=== PATIENT | female | born 1975 | race Caucasian/White ===

== ENCOUNTER 2016-12-17 08:02 | Day surgery (SDC) | payer OTHER ==
[~2016-12-17] VITALS: Ht 162.6 cm; Wt 69.0 kg
[2016-12-17] VITALS (8 sets, daily range): BP systolic 98–107; BP diastolic 46–65; PULSE 63–75; RESP 12–20; O2SAT 92–100
[~2016-12-17 08:02] MED LIST: BUPR200T PO; CeFAZolin Inj 2 GM in IV Premix 1 EACH IV ONE; GABA-502 PO; GABA600T2 PO; HYDR-3797 PO; HYDR15CR38 TP; IBUP200C PO; MELO-259 PO; OXCA300T5 PO; ZLP5T PO; ZOV800 PO
[2016-12-17] MEDS ORDERED: Dexamethasone 4 mg/mL Inj ONE (08:03)
[2016-12-17] MEDS ORDERED: Ondansetron 2 mg/mL 2 mL Inj ONE (08:03)
[2016-12-17] MEDS ORDERED: Propofol 10,000 mCg/mL 20 mL Inj ONE (08:03)
[2016-12-17] MEDS ORDERED: fentaNYL-PF 50 mCg/mL 2 mL Inj ONE (08:03)
[2016-12-17] MEDS ORDERED: Succinylcholine Chloride 20 mg/mL 5 mL Inj ONE (08:03)
[2016-12-17] MEDS: Lactated Ringer's 1,000 ML IV SCH ×3 (08:07→12:05)
[2016-12-17] MEDS ORDERED: Lactated Ringer's 500 ML IV PRN (09:38)
[2016-12-17] MEDS ORDERED: Lactated Ringer's 1,000 ML IV SCH (09:38)
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
[2016-12-17] MEDS ORDERED: Dexamethasone 4 mg/mL Inj IVPUSH PRN (09:40)
[2016-12-17] MEDS ORDERED: MetoCLOpramide 5 mg/mL 2 mL Inj IVPUSH PRN (09:40)
[2016-12-17] MEDS ORDERED: Phenylephrine 10,000 mCg/mL Inj IVPUSH PRN (09:40)
[2016-12-17] MEDS ORDERED: Ondansetron 2 mg/mL 2 mL Inj IVPUSH PRN (09:40)
[2016-12-17] MEDS ORDERED: EPHEDrine Sulfate 50 mg/mL Inj IVPUSH PRN (09:40)
[2016-12-17] MEDS ORDERED: Bupivacaine-MPF 0.5% W/EPI 30 mL Inj INFILTRATE ONE (10:04)
--- NOTE | 2016-12-17 10:58 | PCM.ANEP1 ---
Post Anesthesia Phase 1 PACU Phase 1 Assessment Date of Service: Dec 17, 2016 (0937) Vital Signs 36.5, 80, 20, 100%, 107/54 Vital Signs Date Time Temp Pulse Resp B/P Pulse Ox O2 Delivery O2 Flow Rate FiO2 12/17/16 08:27 36.4 70 18 99/55 97 Room Air Anesthetic Administered: GA Level of Alertness: Sleepy, easy to arouse HERNANDEZ's with Equal Strength: Yes Pain: No Nausea or Vomiting: No Oxygen Delivery: Simple Mask Lungs: Clear to Auscultation Dermatome Level: Full Sensation Summary UNEVENTFUL Bruce Patrick MD Dec 17, 2016 10:58
--- NOTE | 2016-12-17 10:59 | PCM.ANEP2 ---
Post Anesthesia Evaluation ASA/CMS Post Anesthesia VS in Patient's Normal Range?: Yes Resp Stable; Airway Patent?: Yes CV Function & Hydration Stable: Yes Mental Status Recovered?: Yes Pain control Satisfactory?: Yes N/V Control Satisfactory?: Yes Bruce Cramer MD Dec 17, 2016 10:59
[2016-12-17] MEDS ORDERED: HYDROcodone-APAP 5-325 mg Tablet PO PRN (11:00)
--- NOTE | 2016-12-17 11:05 | PCM.PODPO ---
Podiatry Operative Report Date of Service: Dec 17, 2016 (0937) Date of Service Dec 17, 2016 Pre Operative Diagnosis Gastrocnemius equinus left lower extremity Post Operative Diagnosis Same as preoperative diagnoses Procedure Gastrocnemius recession left lower extremity Surgeon Surgeon: Vincent Viveros DPM Assistants: None Indication for Procedure Painful equinus contracture left ankle Findings Healthy intact gastrocnemius aponeuroses Details of Procedure Patient was identified in the preoperative surgical area and all preoperative comorbidities and allergies were identified and thoroughly discussed. The patient was transported into the operating room and placed on the operating room table in the prone position position. The patient was then prepped and draped in the normal aseptic technique. A preoperative block consisting of a one-to-one mixture of half percent Marcaine with epinephrine and 2% lidocaine with epinephrine was given to the posterior mid leg. A linear incision approximately 3 cm in length was made over the posterior medial mid calf directly overlying the area of the mid section of the gastrocnemius aponeuroses. Blunt dissection was carried down with the Metzenbaum scissor to identify deep fascia. The posterior neurovascular structures were identified and retracted out of the surgical field with a metatarsal retractor. Deep fascia was incised with a #15 blade exposing the gastrocnemius aponeuroses. Blunt dissection was performed manually to expose the medial and lateral border of the gastrocnemius aponeuroses. A #15 blade was used to incise through and through the gastrocnemius aponeuroses while dorsiflexion pressure was applied to the foot at the ankle. Approximately 2-2-1/2 cm of gapping of the gastroc aponeurosis was noted. This wound was then copiously flushed large amounts of normal saline. Deep fascia was closed utilizing number 3. 0 Vicryl superficial closure was performed utilizing number 3. 0 Vicryl and skin closure was performed utilizing number 3. 0 Prolene. No complications occurred during this procedure. The patient was given an additional 10 mL half percent Marcaine with epinephrine postoperatively. This wound was then dressed with Adaptic sterile 4 x 4 gauze Kerlix and a mildly compressive Pham compression dressing with the ankle in slight dorsiflexion. The patient was awoken by anesthesia transferred back to the supine position and transported out of the operating room. Grafts, Implants: None Complications There were no periprocedural complications identified. Condition Stable Anesthetic Administered: GA Catheters: None Output, Estimated Blood Loss: 10 Blood Admin during surgery: No Surgical Cast or Splint: Well-padded Short Leg Splint Surgical Specimen Removed: No Specimen sent to Pathology: No Post Operative Plan Ice and elevate left lower extremity Nonweightbearing left lower extremity Keep dressing clean dry and intact left lower extremity Discharge to home when stable Advance diet as tolerated Pain medication as needed for severe pain only Contact office with any questions or concerns regarding care Vincent Viveros DPM Dec 17, 2016 11:05
[2016-12-17] MEDS: fentaNYL-PF 50 mCg/mL 2 mL Inj IVPUSH PRN ×2 (11:08→11:14)
== END 2016-12-17 23:59 | disposition home or self-care (01) ==
LOC: SAS 08:02
PROVIDERS: ATTEND Podiatrist Foot & Ankle Surgery
DX: M21.6X2 Other acquired deformities of left foot (principal); M79.662 Pain in left lower leg; F41.9 Anxiety disorder, unspecified; F31.9 Bipolar disorder, unspecified; M79.7 Fibromyalgia; J30.9 Allergic rhinitis, unspecified; Z87.891 Personal history of nicotine dependence; V49.9XXS Car occupant (driver) (passenger) injured in unspecified traffic accident, sequela; Y92.9 Unspecified place or not applicable
CPT/HCPCS: 27687; J0330; J0690; J1100; J2250; J2405; J2765; J3010; J7120

== ENCOUNTER 2016-12-20 07:18 | Emergency (ER) | payer OTHER ==
[~2016-12-20] VITALS: Ht 165.1 cm; Wt 65.9 kg
[~2016-12-20 07:18] MED LIST changes: -CeFAZolin Inj 2 GM in IV Premix 1 EACH IV ONE
[2016-12-20 07:24] VITALS: BP 91/59; PULSE 75; RESP 18; O2SAT 98
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
[2016-12-20] MEDS ORDERED: Ketorolac 30 mg/mL 2 mL Inj IM ONE (07:45)
[2016-12-20] MEDS ORDERED: Ondansetron 8 mg ODT Tablet PO ONE (07:50)
[2016-12-20 09:08] VITALS: BP 114/59; PULSE 59; RESP 15; O2SAT 100
== END 2016-12-20 10:14 | disposition home or self-care (01) ==
LOC: SED 07:18
DX: G89.18 Other acute postprocedural pain (principal); R20.0 Anesthesia of skin; R11.0 Nausea; Z87.828 Personal history of other (healed) physical injury and trauma; Z98.890 Other specified postprocedural states; Z87.891 Personal history of nicotine dependence; Z88.5 Allergy status to narcotic agent; Z88.8 Allergy status to other drugs, medicaments and biological substances
CPT/HCPCS: 96372; 99283; J1885